=== PATIENT | female | born 1975 | race Caucasian/White ===

== ENCOUNTER 2024-08-28 20:07 | Emergency (ER) | payer MEDICARE, MEDICAID, OTHER, SELFPAY ==
[2024-08-28] VITALS (13 sets, daily range): BP systolic 122–138; BP diastolic 57–77; PULSE 70–90; RESP 18–22; TEMP 36.9; O2SAT 94–98
[2024-08-28 20:35] LABS: Appearance Urine UA CLEAR; Bilirubin Urine UA NEGATIVE (NEGATIVE); Color Urine UA YELLOW; Glucose Urine UA 3+ g/dL (Negative); Ketones Urine UA NEGATIVE (NEGATIVE); Leukocyte Esterase Urine UA NEGATIVE (NEGATIVE); Nitrite Urine UA NEGATIVE (Negative); Occult Blood Urine UA NEGATIVE (Negative); Protein Urine UA NEGATIVE (Negative); Specific Gravity Urine UA <=1.005 (1.000-1.035); Urobilinogen Urine UA 0.2 E.U./dL (0.2)
--- NOTE | 2024-08-28 20:36 | EKG_ITS ---
[facility] [address], [place] [address] Test Date: 2024-08-28 Pat Name: Sveta Hodgson Department: [facility] Room: Gender: Female Stars Specialist: SHARON : 1975 Requested By: Order Number: [id number] Reading MD: Jose A Yo Measurements Intervals [place] Rate: 78 P: 69 MS: 144 QRS: 39 QRSD: 104 T: 53 QT: 410 QTc: 467 Interpretive Statements Normal sinus rhythm Electronically Signed On 08-31-2024 17:43:52 PDT by Jose A Yo
[2024-08-28 20:39] LABS: pH Urine UA 5.5 (4.5-8.0)
[2024-08-28 20:44] LABS: Add Manual Diff / Slide Review NO; Basophils Absolute Auto 100 /uL (0-100); Basophils Percent Auto 1.3 % (0-2); Eosinophils Absolute Auto 200 /uL (0-450); Eosinophils Percent Auto 2.5 % (2-4); Hemoglobin 11.4 g/dL (12.0-16.0); Lymphocytes Absolute Auto 1900 /uL (1100-4500); Lymphocytes Percent Auto 25.8 % (25-40); Mean Corpuscular HGB Conc 31.8 % (30-36); Mean Corpuscular Hemoglobin 27.8 PG (26-34); Mean Corpuscular Volume 87.4 fL (80-100); Monocytes Absolute Auto 400 /uL (0-900); Monocytes Percent Auto 5.8 % (3-14); Neutrophils Absolute Auto 4600 /uL (1500-7000); Neutrophils Percent Auto 64.6 % (50-75); Platelet Count 186 X10^3/uL (150-400); Red Blood Cell Count 4.12 X10^6/uL (4.0-5.2); Red Cell Distribution Width 18.8 % (11.6-14.8); White Blood Cell Count 7.2 X10^3/uL (4.5-11.0)
[2024-08-28 20:48] LABS: Lactate (Lactic Acid) 2.4 mmol/L (0.7-2.1)
[2024-08-28] MEDS: ONDANSETRON 4 MG/2 ML INJ IV (20:48)
[2024-08-28 20:49] LABS: Alanine Aminotransferase 63 IU/L (<35); Albumin 4.4 g/dL (3.5-5.0); Albumin Globulin Ratio 1.3 (1.0-2.8); Alkaline Phosphatase 284 U/L (38-126); Aspartate Aminotransferase 49 IU/L (14-36); BUN Creatinine Ratio 13.1 (6-22); Bilirubin Total 0.4 mg/dL (0.2-1.3); Blood Urea Nitrogen 16 mg/dL (7-17); Calcium 9.8 mg/dL (8.4-10.2); Carbon Dioxide 22 mmol/L (22-32); Chloride 89 mmol/L (98-107); Estimated Glomerular Filt Rate 54 mL/min (>60); Globulin 3.3 g/dL (1.7-4.1); HEMOLYSIS 18 (0-50); Lipase 88 U/L (23-300); Potassium 4.4 mmol/L (3.4-5.1); Sodium 124 mmol/L (137-145); Total Protein 7.7 g/dL (6.3-8.2)
[2024-08-28 20:49] LABS: Bacteria Urine Occasional (0-1); Culture Indicated Urine Cult Not Indicated; RBC Urine 0-1/HPF (0-5/HPF); Squamous Epithelial Cell Urine 1-5 /HPF (0-5/HPF); Urine Volume 10mL (spun); WBC Urine 0-1/HPF (0-5/HPF)
[2024-08-28 20:54] LABS: Ketones (Beta-Hydroxybutyrate) < 0.20 mmol/L (<0.27)
[2024-08-28 20:57] LABS: Glucose 657 mg/dL (70-100)
--- NOTE | 2024-08-28 21:55 | ED_ITS ---
HPI - General Adult General Chief complaint: Diabetic Problem Stated complaint: elevated blood sugar Time Seen by Provider: 08/28/24 20:37 Source: patient and EMS Mode of arrival: EMS History of Present Illness HPI narrative: Patient is a 48-year-old female with history of alcoholism but has been sober for just over a year, reports that she cirrhosis,and new diagnosis of diabetes. She reports that she was started on metformin 500 mg once a day about a month ag. She reports that she is really thirsty and she has paying a lot she has tingling and pain all over her extremities show some abdominal pain. No nausea or vomiting. She reports that she lives in an RV she moves every 3 weeks. No fever or chills. She is found to be hyperglycemic today with glucose greater than 500. She has not on any insulin she is also reporting some mid abdominal pain denies any bloating nausea vomiting chest pain. She is constantly eating ice has increased urination Related Data Allergies Allergy/AdvReac Type Severity Reaction Status Date / Time amoxicillin Allergy Swelling Verified 08/28/24 20:44 of Lip/Tongue/Throat cyclobenzaprine Allergy Verified 08/28/24 20:44 [From Flexeril] hydrocodone [From Vicodin] Allergy Verified 08/28/24 20:44 morphine Allergy Swelling Verified 08/28/24 20:44 of Lip/Tongue/Throat propoxyphene Allergy Verified 08/28/24 20:44 [From Darvocet-N] acetaminophen AdvReac Verified 08/28/24 20:44 Patient History Social History Smoking Status: Former smoker Smoking Status: Former smoker alcohol intake frequency: 0-2 drinks per day Substance Use Type: marijuana Exam Initial Vital Signs Initial Vital Signs: Vital Signs Pulse Rate 78 08/28/24 20:11 Respiratory Rate 22 08/28/24 20:11 Pulse Oximetry 97 08/28/24 20:11 Oxygen Delivery Method Room Air 08/28/24 20:11 GENERAL: Alert slightly disheveled 48-year-old female HEENT: Head atraumatic,EOMI, pupils reactive, face symmetric, moist mucous membranes CARDIOVASCULAR: Regular rate and rhythm without murmurs, rubs or gallops. RESPIRATORY: Breath sounds equal bilaterally, no wheezes rales or rhonchi. ABDOMEN: Soft, no fluid wave no significant distention mild lower abdominal pain no guarding or rebound EXTREMITIES: Normal range of motion, no clubbing or edema. Neurovascularly intact NEUROLOGICAL: Alert and oriented x4.Normal gait and speech. SKIN: Warm, dry, no laceration, no petechiae, no rashes or lesions. Course Orders Ordered: ED Orders 08/28/24 22:08 CT abdomen pelvis w con Stat Discontinued Medications Albuterol/Ipratropium (Albuterol/Ipratropium 3 Ml Ampul) 3 ml INH NOW ONE Stop: 08/28/24 23:26 Last Admin: 08/28/24 23:37 Dose: 3 ml Documented By: RADHA Sodium Chloride (Normal Saline 0.9%) 1,000 mls @ 1,000 mls/hr IV BOLUS ONE Stop: 08/28/24 23:07 Last Infusion: 08/28/24 23:18 Dose: Infused Documented By: Admin: 08/28/24 22:18 Dose: 1,000 mls/hr Documented By: ETELVINA Insulin Human Regular (Insulin Regular 100 Unit/Ml 3 Ml Vial) 10 unit SUBCUT NOW ONE Stop: 08/28/24 22:09 Last Admin: 08/28/24 22:18 Dose: 10 unit Documented By: ETELVINA Co-signed By: SHAUN Ketorolac Tromethamine (Ketorolac 30 Mg/Ml Vial) 15 mg IV NOW ONE Stop: 08/28/24 23:25 Last Admin: 08/28/24 23:28 Dose: 15 mg Documented By: ETELVINA Ondansetron HCl (Ondansetron 4 Mg/2 Ml Inj) 4 mg IV NOW PRN PRN Reason: Nausea And Vomiting Last Admin: 08/28/24 20:48 Dose: 4 mg Documented By: ETELVINA Ondansetron HCl (Ondansetron 4 Mg Odt) 4 mg PO NOW PRN PRN Reason: Nausea And Vomiting Oxycodone HCl (Oxycodone Ir 5 Mg Tablet) 5 mg PO NOW ONE Stop: 08/29/24 00:50 Last Admin: 08/29/24 01:10 Dose: 5 mg Documented By: ETELVINA Vital Signs Vital signs: Vital Signs - 8 hr 08/28/24 22:30 08/28/24 23:00 08/28/24 23:24 Pulse Rate 79 70 Respiratory Rate Blood Pressure 138/66 Pulse Oximetry 97 96 Oxygen Delivery Method Fraction of Inspired Oxygen 08/28/24 23:24 08/28/24 23:30 08/28/24 23:30 Pulse Rate 90 82 Respiratory Rate Blood Pressure 122/57 L Pulse Oximetry 97 94 Oxygen Delivery Method Fraction of Inspired Oxygen 08/28/24 23:38 08/29/24 00:00 08/29/24 00:00 Pulse Rate 86 81 Respiratory Rate 18 18 Blood Pressure 122/64 Pulse Oximetry 96 95 Oxygen Delivery Method Room Air Fraction of Inspired Oxygen 21 08/29/24 01:36 08/29/24 01:36 08/29/24 02:00 Pulse Rate 71 71 69 Respiratory Rate 22 Blood Pressure 124/66 Pulse Oximetry 95 96 95 Oxygen Delivery Method Room Air Fraction of Inspired Oxygen 08/29/24 02:00 08/29/24 02:30 08/29/24 03:00 Pulse Rate 60 59 L Respiratory Rate Blood Pressure 123/58 L Pulse Oximetry 94 96 Oxygen Delivery Method Fraction of Inspired Oxygen 08/29/24 03:00 08/29/24 03:30 08/29/24 04:00 Pulse Rate 59 L Respiratory Rate Blood Pressure 116/69 117/67 Pulse Oximetry 95 Oxygen Delivery Method Fraction of Inspired Oxygen 08/29/24 04:00 08/29/24 04:30 08/29/24 05:00 Pulse Rate 61 60 58 L Respiratory Rate Blood Pressure Pulse Oximetry 95 96 97 Oxygen Delivery Method Fraction of Inspired Oxygen 08/29/24 05:00 08/29/24 05:30 08/29/24 06:00 Pulse Rate 61 59 L Respiratory Rate 18 Blood Pressure 128/79 Pulse Oximetry 95 95 Oxygen Delivery Method Fraction of Inspired Oxygen 08/29/24 06:00 Pulse Rate Respiratory Rate Blood Pressure 134/78 Pulse Oximetry Oxygen Delivery Method Fraction of Inspired Oxygen Medical Decision Making Lab Data 08/28/24 20:20 08/28/24 20:20 Labs: Lab Results 08/28/24 08/28/24 08/28/24 Range/Units 20:15 20:20 23:15 WBC 7.2 (4.5-11.0) X10^3/uL RBC 4.12 (4.0-5.2) X10^6/uL Hgb 11.4 L (12.0-16.0) g/dL Hct 36.0 (36-46) % MCV 87.4 (80-100) fL MCH 27.8 (26-34) PG MCHC 31.8 (30-36) % RDW 18.8 H (11.6-14.8) % Plt Count 186 (150-400) X10^3/uL Neut % (Auto) 64.6 (50-75) % Lymph % (Auto) 25.8 (25-40) % [place] % (Auto) 5.8 (3-14) % Eos % (Auto) 2.5 (2-4) % Baso % (Auto) 1.3 (0-2) % Neut # (Auto) 4600 (3167-1977) /uL Lymph # (Auto) 1900 (2549-4797) /uL [place] # (Auto) 400 (0-900) /uL Eos # (Auto) 200 (0-450) /uL Baso # (Auto) 100 (0-100) /uL Sodium 124 L (137-145) mmol/L Potassium 4.4 (3.4-5.1) mmol/L Chloride 89 L (98-107) mmol/L Carbon Dioxide 22 (22-32) mmol/L BUN 16 (7-17) mg/dL Creatinine 1.22 H (0.52-1.04) mg/dL Estimated GFR 54 L (>60) mL/min BUN/Creatinine Ratio 13.1 (6-22) Glucose 657 H* (70-100) mg/dL Hemoglobin A1c > 14.0 H (4.0-6.0) % Lactate 2.4 H 2.1 (0.7-2.1) mmol/L Calcium 9.8 (8.4-10.2) mg/dL Total Bilirubin 0.4 (0.2-1.3) mg/dL AST 49 H (14-36) IU/L ALT 63 H (<35) IU/L Alkaline Phosphatase 284 H (38-126) U/L Total Protein 7.7 (6.3-8.2) g/dL Albumin 4.4 (3.5-5.0) g/dL Globulin 3.3 (1.7-4.1) g/dL Albumin/Globulin Ratio 1.3 (1.0-2.8) Lipase 88 (23-300) U/L Urine Color Yellow Urine Appearance Clear Urine pH 5.5 (4.5-8.0) Ur Specific [place] <=1.005 (1.000-1.035) Urine Protein Negative (Negative) Urine Glucose (UA) 3+ H (Negative) g/dL Urine Ketones Negative (NEGATIVE) Urine Occult Blood Negative (Negative) Urine Nitrate Negative (Negative) Urine Bilirubin Negative (NEGATIVE) Urine Urobilinogen 0.2 (0.2) E.U./dL Ur Leukocyte Esterase Negative (NEGATIVE) Urine RBC 0-1/hpf (0-5/HPF) Urine WBC 0-1/hpf (0-5/HPF) Ur Squamous Epith Cells 1-5 /hpf (0-5/HPF) Urine Bacteria Occasional (0-1) (None) Ur Culture Indicated? Cult not indicated Vol Urine Centrifuged 10ml (spun) Ketones < 0.20 (<0.27) mmol/L Point of Care Testing Glucose POC 248 Point of care testing: Point of Care Testing Glucose POC [address] scan - abdomen/pelvis: Radiologist's Impression: PROCEDURE: CT ABDOMEN PELVIS W CON INDICATIONS: ab pain TECHNIQUE: After the administration of intravenous contrast, axial sections acquired from the lung bases to the pubic symphysis. Coronal and sagittal reformats were performed. For radiation dose reduction, the following was used: automated exposure control, adjustment of mA and/or kV according to patient size. COMPARISON: None. FINDINGS: Image quality: Diagnostic, although evaluation of the bowel is limited due to the paucity of intra-abdominal fat and lack of oral contrast Peritoneum: No pneumoperitoneum or ascites. Bones: No acute osseous abnormality. Lower Chest: No acute abnormality. Liver: Normal in size and contour. Gallbladder: Contracted gallbladder. Biliary tree: No intrahepatic or extrahepatic biliary ductal dilatation. Pancreas: 1.0 x 0.9 cm hypodense lesion along the mesenteric border of the pancreatic body (2/32). Otherwise, within normal limits Spleen: Normal in size and contour. Kidneys: No hydronephrosis or obstructive urolithiasis. Adrenals: No adrenal nodularity. Bladder: Normal in size and wall thickness. : Atrophic versus surgically absent uterus. No abnormal adnexal masses. Stomach: Mild posterior gastric wall thickening along with additional intramural thickening along the gastric pylorus/antrum (2/44). Small hiatal hernia. Bowel: Normal in diameter without any bowel obstruction. Appendix within normal limits (3/31). Moderate volume stool burden. Lymph Nodes: No retroperitoneal, mesenteric, or inguinal lymphadenopathy. Vascular: No abdominal aortic aneurysm. The visualized arterial vasculature is patent. Soft Tissues: No acute abnormality. IMPRESSION: 1. Small hiatal hernia. 2. Non-specific gastric posterior body and pylorus/antral thickening. Consider gastroenterological consultation for potential endoscopic evaluation. 3. Moderate volume stool burden, which can be seen with constipation. 4. Incidentally noted 1.0 cm pancreatic body hypodense lesion. Follow-up CT abdomen pelvis with contrast recommended in 1 year to assess for interval growth versus stability. 5. Otherwise, no acute abnormality of the abdomen/pelvis. Dictated by: Carlo Robles M.D. on 08/28/2024 at 23:57 Approved by: Carlo Robles M.D. on 08/29/2024 at 0:07 ECG Data Attestation: I personally reviewed and interpreted this ECG as follows: Prior ECG tracings: not available for review Interpretation: Normal sinus rhythm rate 78 DC interval 144 QRS 104 QTC 467 [facility] Narrative Medical decision making narrative: [facility] CC: Abdominal pain, tingling all over high glucose Complicating co-morbidities: Newly diagnosed diabetes history of cirrhosis alcoholism now sober for over 1 year. Gets most of her care in [facility] Medical records reviewed: None prior Differential considered: DKA hyperosmotic hyperglycemia Exam documented above, pertinent findings include: Patient overall appears well abdomen is mildly tender she has no fluid wave no significant distention breath sounds were clear. she is eating ice reports that she is constantly eating ice Lab Test results independently reviewed as above. Pertinent findings: Glucose 657, hemoglobin A1c greater than 14 Na 124 with glucose correction 133 Lactate 2.4 with repeat 2.1 Anion gap 13 Venous pH 7.490 Creatinine 1.22 unknown what baseline is Bilirubin 0.4, AST 49, ALT 63, alk-phos 284, lipase 88 CBC does not show any leukocytosis or anemia Independently reviewed EKG as above no ischemia Imaging studies independently reviewed: CT abdominal does not show any ascites or cause for abdominal pain Consultations: None Treatments: 1 L IV fluids Re-evaluations: Patient overall appears to feel better. Her given some Toradol for abdominal pain but asking for her regular oxycodone for her leg pain abdomen remains soft vitals are stable She did receive subcutaneous insulin she is insulin naive POC glucose were obtained glucose 00:13was 392 Discussion: Patient 49-year-old female who has uncontrolled diabetes. She is found to be hyperglycemic today with glucose greater than 600 she has a hemoglobin A1c greater than 14. He is only taking metformin 500 mg once a day. sHe has no evidence of DKA. She was given insulin SQ and a L of fluid in the emergency department. CT shows some thickening in the pylorus recommended an EGD. Patient will likely need insulin however at this time will least increase her metformin to a 500 mg twice a day. She reports that she has an appointment with a specialist on September 20. We discussed diet and exercise and lifestyle changes. Unfortunately she is past time for [place] to be running she is given her dose of oxycodone to help with her legs in her pain. No need for antibiotics. Monitored in ED overnight waiting for ride. 6:09 am POC glucose 248 Discharge Plan Departure Patient Disposition: Home Clinical Impression: Acute hyperglycemia, Gastric wall thickening Activity Restrictions/Additional Instructions: *You have been diagnosed with uncontrolled diabetes *What to do: At this time you will need better control of your diabetes. You will likely need insulin. Please discuss this with your primary care provider *Continue to take medications as directed Metformin 500 mg twice a day, this ultimately will need to go up to 1000 mg twice daily but please discuss with your primary care provider *Follow up with your primary care provider in 2-3 days or call [phone] *Return to ER if you should have increasing abdominal pain, nausea vomiting or any new, worsening or concerning symptoms Stand Alone Forms: Patient Portal/API
[2024-08-28 22:02] LABS: Hemoglobin A1C% w Est Avg Glu > 14.0 % (4.0-6.0)
--- NOTE | 2024-08-28 22:04 | PC.NURSE ---
Pt ambulatory to restroom without difficulty or assistance
--- NOTE | 2024-08-28 22:08 | DI.CT.S_ITS ---
PROCEDURE: CT ABDOMEN PELVIS W CON INDICATIONS: ab pain TECHNIQUE: After the administration of intravenous contrast, axial sections acquired from the lung bases to the pubic symphysis. Coronal and sagittal reformats were performed. For radiation dose reduction, the following was used: automated exposure control, adjustment of mA and/or kV according to patient size. COMPARISON: None. FINDINGS: Image quality: Diagnostic, although evaluation of the bowel is limited due to the paucity of intra-abdominal fat and lack of oral contrast Peritoneum: No pneumoperitoneum or ascites. Bones: No acute osseous abnormality. Lower Chest: No acute abnormality. Liver: Normal in size and contour. Gallbladder: Contracted gallbladder. Biliary tree: No intrahepatic or extrahepatic biliary ductal dilatation. Pancreas: 1.0 x 0.9 cm hypodense lesion along the mesenteric border of the pancreatic body (2/32). Otherwise, within normal limits Spleen: Normal in size and contour. Kidneys: No hydronephrosis or obstructive urolithiasis. Adrenals: No adrenal nodularity. Bladder: Normal in size and wall thickness. : Atrophic versus surgically absent uterus. No abnormal adnexal masses. Stomach: Mild posterior gastric wall thickening along with additional intramural thickening along the gastric pylorus/antrum (2/44). Small hiatal hernia. Bowel: Normal in diameter without any bowel obstruction. Appendix within normal limits (3/31). Moderate volume stool burden. Lymph Nodes: No retroperitoneal, mesenteric, or inguinal lymphadenopathy. Vascular: No abdominal aortic aneurysm. The visualized arterial vasculature is patent. Soft Tissues: No acute abnormality. IMPRESSION: 1. Small hiatal hernia. 2. Non-specific gastric posterior body and pylorus/antral thickening. Consider gastroenterological consultation for potential endoscopic evaluation. 3. Moderate volume stool burden, which can be seen with constipation. 4. Incidentally noted 1.0 cm pancreatic body hypodense lesion. Follow-up CT abdomen pelvis with contrast recommended in 1 year to assess for interval growth versus stability. 5. Otherwise, no acute abnormality of the abdomen/pelvis. Dictated by: Carlo Robles M.D. on 08/28/2024 at 23:57 Approved by: Carlo Robles M.D. on 08/29/2024 at 0:07
[2024-08-28 22:15] LABS: Reflexed Lactate in 2 Hours Y
[2024-08-28] MEDS: INSULIN REGULAR 100 UNIT/ML 3 ML VIAL 10 UNIT SUBCUT (22:18)
[2024-08-28] MEDS: SODIUM CHLORIDE 0.9% 1,000 ML 1000 ML IV (22:18)
[2024-08-28] MEDS: KETOROLAC 30 MG/ML VIAL 15 MG IV (23:28)
[2024-08-28 23:36] LABS: Lactate 2HR (Lactic Acid Rflx) 2.1 mmol/L (0.7-2.1)
[2024-08-28] MEDS: ALBUTEROL/IPRATROPIUM 3 ML AMPUL INH (23:37)
[2024-08-29] VITALS (11 sets, daily range): BP systolic 116–134; BP diastolic 58–79; PULSE 58–81; RESP 18–22; O2SAT 94–97
--- NOTE | 2024-08-29 00:48 | PC.NURSE ---
PROPOSAL DIRECTOR note: Attempting to get patient a taxi home. Called [employer] the following times: 0024 (left a message), 0027, 0034, 0036, 0037 (using a cellphone), 0043 (left a message), and 0048. 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
[2024-08-29] MEDS: OXYCODONE IR 5 MG TABLET PO (01:10)
--- NOTE | 2024-08-29 03:42 | PC.NURSE ---
Pt resting quietly with eyes closed, resps even and not labored. No distress noted at this time.
== END 2024-08-29 06:18 | disposition home or self-care (01) ==
PROVIDERS: Emergency Provider Emergency Medicine
DX: E11.65 Type 2 diabetes mellitus with hyperglycemia (principal); K31.89 Other diseases of stomach and duodenum; R10.9 Unspecified abdominal pain
CPT/HCPCS: 36415; 74177; 80053; 81001; 82009; 82962; 83036; 83605; 83690; 85025; 93005; 94640; 96361; 96372; 96374; 96375; 99284; J1885; J2405; Q9967